=== PATIENT | female | born 1940 | race Caucasian/White ===

== ENCOUNTER → 2024-07-29 15:51 | Outpatient (REF) | payer OTHER, SELFPAY | LOC: HWRCS 15:51 | PROVIDERS: ATTENDING PHYSICIAN Internal Medicine Cardiovascular Disease; FAMILY PHYSICIAN Internal Medicine Geriatric Medicine | DX: Z95.3 Presence of xenogenic heart valve (principal); I50.32 Chronic diastolic (congestive) heart failure; I05.0 Rheumatic mitral stenosis | CPT/HCPCS: 93306 ==

== ENCOUNTER → 2024-07-30 08:49 | Outpatient (REF) | payer OTHER, SELFPAY ==
[2024-07-30 10:42] LABS: % Basophils 0.9 % (0-2); % Eosinophils 3.2 % (0-6); % Immature Granulocytes 0.4 % (0-0.5); % Lymphocytes 28.9 % (20.5-51.1); % Monocytes 9.9 % (1.7-9.3); % Neutrophils 56.7 % (42.2-75.2); Absolute Basophils 0.1 10^3/uL (0-0.2); Absolute Eosinophils 0.2 10^3/uL (0-0.7); Absolute Lymphocytes 1.6 10^3/uL (1.2-3.4); Absolute Monocytes 0.5 10^3/uL (0.1-0.6); Hematocrit 36.2 % (37.0-47.0); Mean Corp Hgb Conc. 33.1 g/dL (33.0-37.0); Mean Corpuscular Hgb 34.3 pg (27.0-31.0); Mean Corpuscular Volume 103.4 fL (81.0-99.0); Nucleated Red Blood Cells % 0 %; Red Cell Dist. Width 13.4 % (11.5-14.5); White Blood Cell Count 5.4 10^3/uL (4.8-10.8)
[2024-07-30 11:05] LABS: Erythrocyte Sed Rate 42 mm/hour (0-20)
[2024-07-30 11:09] LABS: Mean Platelet Volume 12.6 fL (7.4-10.4)
[2024-07-30 11:10] LABS: Platelet Count 189 10^3/uL (130-400)
== END ==
LOC: REG 08:49
PROVIDERS: ATTENDING PHYSICIAN Internal Medicine Cardiovascular Disease; FAMILY PHYSICIAN Internal Medicine Geriatric Medicine
DX: I33.0 Acute and subacute infective endocarditis (principal)
CPT/HCPCS: 36415; 85025; 85652; 87040

== ENCOUNTER → 2024-08-03 08:55 | Day surgery (SDC) | payer OTHER, SELFPAY | LOC: CATH 08:55 | PROVIDERS: ATTENDING PHYSICIAN Internal Medicine; FAMILY PHYSICIAN Internal Medicine Geriatric Medicine; OTHER PHYSICIAN Internal Medicine Cardiovascular Disease | DX: I05.2 Rheumatic mitral stenosis with insufficiency (principal); I11.0 Hypertensive heart disease with heart failure; I50.32 Chronic diastolic (congestive) heart failure; Z95.3 Presence of xenogenic heart valve; Q21.12 Patent foramen ovale; E78.5 Hyperlipidemia, unspecified; K21.9 Gastro-esophageal reflux disease without esophagitis; J44.9 Chronic obstructive pulmonary disease, unspecified; Z87.891 Personal history of nicotine dependence | CPT/HCPCS: 93312; 93320; 93325; 93005 ==

== ENCOUNTER → 2024-12-10 08:39 | Outpatient (REF) | payer OTHER, SELFPAY ==
[2024-12-10 09:45] LABS: % Basophils 0.8 % (0-2); % Eosinophils 2.3 % (0-6); % Immature Granulocytes 0.2 % (0-0.5); % Monocytes 10.6 % (1.7-9.3); % Neutrophils 57.1 % (42.2-75.2); Absolute Eosinophils 0.1 10^3/uL (0-0.7); Absolute Lymphocytes 1.5 10^3/uL (1.2-3.4); Absolute Monocytes 0.6 10^3/uL (0.1-0.6); Hematocrit 37.9 % (37.0-47.0); Hemoglobin 12.4 g/dL (12.0-16.0); Mean Corp Hgb Conc. 32.7 g/dL (33.0-37.0); Mean Corpuscular Hgb 33.8 pg (27.0-31.0); Mean Corpuscular Volume 103.3 fL (81.0-99.0); Mean Platelet Volume 12.5 fL (7.4-10.4); Nucleated Red Blood Cells % 0 %; Platelet Count 168 10^3/uL (130-400); Red Blood Cell Count 3.67 10^6/uL (4.20-5.40); Red Cell Dist. Width 14.3 % (11.5-14.5); White Blood Cell Count 5.3 10^3/uL (4.8-10.8)
[2024-12-10 09:52] LABS: Urine Albumin Negative (Neg - Trace); Urine Bilirubin Negative (Negative); Urine Character Clear (Clear); Urine Color Yellow; Urine Glucose Negative (Negative); Urine Ketone Negative (Negative); Urine Leukocyte Negative (Negative); Urine Nitrite Positive (Negative); Urine Occult Blood Negative (Negative); Urine Urobilinogen Negative (Neg - 1+)
[2024-12-10 10:10] LABS: ALT (SGPT) 15 U/L (0-35); AST (SGOT) 29 U/L (14-36); Albumin 4.4 g/dl (3.5-5.0); Alkaline Phosphatase 75 U/L (38-126); Blood Urea Nitrogen 35 mg/dl (7-17); Calcium 9.7 mg/dl (8.4-10.2); Carbon Dioxide 26 mmol/L (22-30); Chloride 103 mmol/L (98-107); Glucose 102 mg/dl (70-99); HDL Cholesterol 68 mg/dl; LDL Cholesterol, Calculated 132 mg/dl; Potassium 4.3 mmol/L (3.5-5.1); Sodium 140 mmol/L (135-145); Total Bilirubin 0.3 mg/dl (0.2-1.3); Total Cholesterol 225 mg/dl (50-199); Total Protein 7.4 g/dl (6.3-8.2); Triglyceride 129 mg/dl (10-149); Very Low Density Lipoprotein 25 mg/dl (0-30); eGFR 49.55
[2024-12-10 10:22] LABS: Urine Squamous Cell 16-20 /LPF (Few)
[2024-12-10 10:23] LABS: Urine Bacteria Many (Negative)
[2024-12-10 10:29] LABS: Vitamin D, 25-OH*** 71.8 ng/mL (30-80)
== END ==
LOC: REG 08:39
PROVIDERS: ATTENDING PHYSICIAN Internal Medicine Geriatric Medicine; OTHER PHYSICIAN Internal Medicine Cardiovascular Disease
DX: Z00.00 Encounter for general adult medical examination without abnormal findings (principal); J96.91 Respiratory failure, unspecified with hypoxia; J44.9 Chronic obstructive pulmonary disease, unspecified; I50.32 Chronic diastolic (congestive) heart failure; E66.01 Morbid (severe) obesity due to excess calories; K59.00 Constipation, unspecified; K85.10 Biliary acute pancreatitis without necrosis or infection; K80.50 Calculus of bile duct without cholangitis or cholecystitis without obstruction; Z98.890 Other specified postprocedural states; Z95.2 Presence of prosthetic heart valve; I50.30 Unspecified diastolic (congestive) heart failure; I10 Essential (primary) hypertension; K21.9 Gastro-esophageal reflux disease without esophagitis; Z13.31 Encounter for screening for depression; I67.1 Cerebral aneurysm, nonruptured; E55.9 Vitamin D deficiency, unspecified
CPT/HCPCS: 36415; 80053; 80061; 81003; 81015; 82306; 85025

== ENCOUNTER → 2025-05-06 08:12 | Outpatient (REF) | payer OTHER, SELFPAY ==
[2025-05-06 09:34] LABS: Blood Urea Nitrogen 19 mg/dl (7-17); Calcium 9.6 mg/dl (8.4-10.2); Carbon Dioxide 27 mmol/L (22-30); Chloride 107 mmol/L (98-107); Glucose 96 mg/dl (70-99); Potassium 4.2 mmol/L (3.5-5.1); Sodium 143 mmol/L (135-145); eGFR > 60.00
== END ==
LOC: REG 08:12
PROVIDERS: ATTENDING PHYSICIAN Internal Medicine Cardiovascular Disease; FAMILY PHYSICIAN Internal Medicine Geriatric Medicine
DX: Z01.812 Encounter for preprocedural laboratory examination (principal); I67.1 Cerebral aneurysm, nonruptured; R20.2 Paresthesia of skin
CPT/HCPCS: 36415; 80048

== ENCOUNTER → 2025-05-08 15:28 | Outpatient (REF) | payer OTHER, SELFPAY | LOC: RAD 15:28 | PROVIDERS: ATTENDING PHYSICIAN Internal Medicine Cardiovascular Disease; FAMILY PHYSICIAN Internal Medicine Geriatric Medicine | DX: Z95.3 Presence of xenogenic heart valve (principal) | CPT/HCPCS: 70496; 70498; Q9967 ==